=== PATIENT | female | born 1950 | race Caucasian/White ===

== ENCOUNTER 2017-03-08 13:54 | Outpatient (CLI) | payer MEDICARE, OTHER ==
[2011-03-19 06:18] VITALS: BMI 26.7
== END 2017-03-08 14:21 ==
LOC: D.MAMMO 13:54
DX: Z12.31 Encounter for screening mammogram for malignant neoplasm of breast (principal)

== ENCOUNTER 2017-03-31 10:45 | Outpatient (CLI) | payer MEDICARE, OTHER ==
[2011-03-19 06:18] VITALS: BMI 26.7
== END 2017-03-31 13:50 ==
LOC: D.MAMMO 10:45
DX: R92.8 Other abnormal and inconclusive findings on diagnostic imaging of breast (principal)

== ENCOUNTER → 2017-11-21 14:40 | Outpatient (CLI) | payer MEDICARE, OTHER ==
[2011-03-19 06:18] VITALS: BMI 26.7
== END | disposition home or self-care (01) ==
LOC: D.MAMMO 04-15 13:00 → D.US 10-11 09:00 → D.MAMMO 11:00
DX: R92.8 Other abnormal and inconclusive findings on diagnostic imaging of breast (principal)

== ENCOUNTER → 2017-12-01 08:56 | Outpatient (CLI) | payer MEDICARE, OTHER ==
[2011-03-19 06:18] VITALS: BMI 26.7
== END | disposition home or self-care (01) ==
LOC: D.US 08:56
DX: R92.8 Other abnormal and inconclusive findings on diagnostic imaging of breast (principal)

== ENCOUNTER → 2019-01-01 11:52 | Outpatient (CLI) | payer MEDICARE, OTHER ==
[2011-03-19 06:18] VITALS: BMI 26.7
== END | disposition home or self-care (01) ==
LOC: D.LABREF 11:52
PROVIDERS: ATTEND Orthopaedic Surgery
DX: M17.12 Unilateral primary osteoarthritis, left knee (principal); Z11.8 Encounter for screening for other infectious and parasitic diseases

== ENCOUNTER 2019-01-16 06:35 | Inpatient (IN) | payer MEDICARE, OTHER ==
[2019-01-10 11:14] LABS: BASOPHILS 0.4 % (0-2); EOSINOPHILS 1.7 % (0-7); HEMATOCRIT 40.6 % (36.0-48.0); HEMOGLOBIN 14.1 g/dL (12-16); IMMATURE GRANULOCYTES 0.4 % (0-5); LYMPHOCYTES 29.6 % (15-50); MCH 30.9 pg (26.0-34.0); MCHC 34.7 g/dL (31.0-37.0); MCV 88.8 fL (80.0-100.0); MONOCYTES 9.1 % (2-11); NEUTROPHILS 58.8 % (40-80); PLATELET COUNT 185 10x3/uL (130-400); RBC 4.57 10x6/uL (4.00-5.40); RDW 12.6 % (11.5-14.5)
[2019-01-10 11:18] LABS: APTT 26.9 SECONDS (22.8-39.4); CALC OSMOLALITY 282 mosm/kg (275-300); CALCIUM 8.6 mg/dL (8.5-10.1); CHLORIDE - SERUM 105 mmol/L (98-107); CREATININE - SERUM 0.6 mg/dL (0.6-1.3); GLUCOSE 106 mg/dL (74-106); INR 1.04 (0.85-1.17); POTASSIUM - SERUM 3.6 mmol/L (3.5-5.1); PROTIME 13.1 SECONDS (11.6-15.0); SODIUM 142 mmol/L (136-145); UREA NITROGEN 12 mg/dL (7-18); eGFR NON AFRICAN AMERICAN > 90 mL/min (90-120)
[2019-01-10 11:25] LABS: APPEARANCE CLEAR (CLEAR); BACTERIA FEW /hpf (NONE SEEN); BILIRUBIN NEGATIVE (NEGATIVE); COLOR YELLOW (YELLOW); EPITHELIAL CELLS RARE /hpf (0-5); GLUCOSE NEGATIVE (NEGATIVE); KETONE NEGATIVE (NEGATIVE); MUCUS <1+ /lpf (NONE SEEN); NITRITE NEGATIVE (NEGATIVE); PROTEIN NEGATIVE (NEGATIVE); RED CELLS - URINE RARE /hpf (0-5); SPECIFIC GRAVITY 1.015 (1.005-1.020); UROBILINOGEN NORMAL (NORMAL); WHITE CELLS - URINE RARE /hpf (0-5)
[~2019-01-16 06:35] MED LIST: AMBIEN5 MG PO; BENADRYL25 MG PO; CALCIUM 500 +1 EAC3 PO; CO Q-10100 MG PO; DETROL LA4 MG PO; KRILL OIL 1,001 EAC1 PO; MECLIZINE HCL25 MG PO; OMEPRAZOLE20 M1 PO; SOMA250 MG PO; ULTRAM50 MG PO
[2019-01-16 07:28] VITALS: BP 139/77; BMI 27.4
[2019-01-16 14:22] VITALS: BP 126/83
--- NOTE | 2019-01-16 16:27 | OP ---
PATIENT NAME: BRENDAN OSWALD MEDICAL RECORD: [id number] :48 LOCATION:D.[facility] [place] [facility] ADMISSION DATE:01/16/19 SURGEON: ROYCE PARIKH DO DATE OF OPERATION: 01/16/2019 PROCEDURE PERFORMED: Left total knee arthroplasty. PREOPERATIVE DIAGNOSIS: Left knee osteoarthritis. POSTOPERATIVE DIAGNOSIS: Left knee osteoarthritis. INDICATIONS: Ms. Oswald is a 68-year-old female who has had all manner of conservative management for her left knee and has given her pain and affecting her activities of daily living. She was tired of dealing with it and having it done that and after failing injections and all other conservative management, she wanted the total knee done. She is aware of the risks including infection, bleeding, damage to nerve or vessels, fracture, need for further surgery, and signed the consent. SURGEON: Royce Parikh DO. SHOE STAINER: Hal Carr, advance nurse practitioner. He assisted with retraction, could not have been performed without him. DESCRIPTION OF PROCEDURE: The patient received a block by anesthesia in the preoperative area. He was taken to the operative suite, laid in supine position. Left lower extremity was prepped and draped in sterile fashion. The patient was given a gram of vancomycin and a gram of TXA prior to incision. A timeout had been performed and once everybody were in agreement of correct side, site, patient and procedure, the incision was marked out and covered with Ioban. A 10 blade scalpel was used to make the incision and dissect down to the capsule. Capsule was cleared off and a fresh 10 blade was used to do a medial parapatellar approach to the knee. All bleeding was coagulated at that time with Aquamantys. Some of the fat pad was removed at that time and the knee was brought to extension and the patella was milled down. The implant measured to be a 31 three PEG patella. Once the patella was milled down, the femur was exposed and the intramedullary guide was drilled. The guide was put down and the distal femur was cut. After the distal femur was cut, the tibia was exposed and the proximal tibia was cut. This was removed as well as the menisci and any other bleeders were coagulated with the Aquamantys at that time. The knee was then flexed up. The extension block was then put in and fit very easily well. The knee was then flexed up and the femur was measured to be a 60. A 4-in-1 cutting block was then put into place and it was cut. The trial was then impacted on the femur and the poly and tray was floated into the tibia and ranged 5 times and then the rotation was marked. Once rotation was marked, the patellar holes were drilled through the guide and then the lug holes were drilled through the femur and the tibial tray, and poly were removed. The tibia was then exposed and sized to be 67. This was drilled and punched and the extra holes were put in the tibia for the cement. After that was done, the cement was mixed and the knee was thoroughly irrigated. Cement was put on the tibial tray as well as in the tibia and the tibial tray was impacted in place. Excess cement was removed. The femur was then impacted on it and was press fit and a 12 poly was put in between them, brought to an extension. Any excess cement was removed at that time. Then the patella was put on and cemented into place and held until the cement dried, excess cement was removed. The knee was irrigated OPERATIVE REPORT [id number] BRENDAN OSWALD at that time. Any bleeders were coagulated as well. Once the cement had dried, we trialed a 12, it seemed to fit well, but it was a little loose and a 14 was put in and fit very well, it was good and tight and had good medial and lateral stability both in extension and flexion. The knee was then irrigated and the actual deep-dish E-poly was put in with a 14 and then the locking mechanism was put into the tray. The knee was irrigated again and then Surgicel powder as well as vancomycin and tobramycin powder were put in the knee. The capsule was then closed with #2 Ethibond in hwdwrd-rn-wsydl fashion. Then, the excess antibiotic powder was placed on top of the capsule. The skin was then closed with 2-0 Vicryl in inverted interrupted fashion and a Zipline placed on the knee. The patient had Adaptic, 4 x 4s, ABD, Webril and Osmin wrap placed on the knee and then a SOFYA hose stocking up to the knee. She was then awakened and taken to recovery in stable condition. She did receive a second gram of TXA at closure. BLOOD LOSS: Approximately 150 mL. COMPLICATIONS: None. TRANSINT:[id number] Voice Confirmation ID: [id number] DOCUMENT ID: [id number] ROYCE PARIKH DO at 1627 CC: [id number] DICTATION DATE: 01/16/19 1308 RESIDENTIAL CASE MANAGER: 01/16/19 1540 ADM IN [place] [id number] [place] [address]
[2019-01-16 17:21] VITALS: BP 129/83
[2019-01-16 22:01] VITALS: BP 102/62
[2019-01-17 05:09] VITALS: BP 115/55
[2019-01-17 05:20] LABS: HEMATOCRIT 36.6 % (36.0-48.0); HEMOGLOBIN 12.5 g/dL (12-16); MCH 30.5 pg (26.0-34.0); MCHC 34.2 g/dL (31.0-37.0); MCV 89.3 fL (80.0-100.0); MEAN PLATELET VOLUME 10.4 fL (7.4-10.4); RBC 4.1 10x6/uL (4.00-5.40); RDW 12.3 % (11.5-14.5)
--- NOTE | 2019-01-17 09:09 | CN ---
PATIENT NAME:BRENDAN RIBERA MEDICAL RECORD: [id number] : 48 LOCATION:D.[facility] [place] [facility] ADMIT DATE: 01/16/19 ACCOUNT: [id number] CONSULTING PHYSICIAN: JAM HUNT MD REFERRING PHYSICIAN: GRADY PARIKH DO DATE OF CONSULTATION: 01/16/2019 REQUESTING PHYSICIAN: Grady Parikh DO REASON FOR CONSULTATION: Medical management. HISTORY OF PRESENT ILLNESS: This is a 68-year-old female who was admitted by Dr. Parikh for elective left total knee arthroplasty for severe arthritis. She has had her procedure and she appears comfortable. PAST MEDICAL HISTORY: She has a past medical history of overactive bladder, heart palpitations, and hyperlipidemia. She has a vestibular schwannoma. PAST SURGICAL HISTORY: Foot surgery to fix plantar fasciitis and heel spur. She has had right carpal tunnel release, cholecystectomy, and bilateral tubal ligation. FAMILY HISTORY: Father at 77 of heart disease. Mother is as well. SOCIAL HISTORY: The patient is retired and . HOME MEDICATIONS: Omeprazole 20 mg a day, Detrol-LA 4 mg once a day, tramadol p.r.n. pain, zolpidem 2.5 mg at bedtime p.r.n. sleep, Benadryl 25 mg p.o. at bedtime p.r.n. sleep, Soma 250 mg t.i.d. p.r.n. dizziness due to vestibular schwannoma, and Meclizine 25 mg p.o. t.i.d. p.r.n. dizziness for vestibular schwannoma. REVIEW OF SYSTEMS: GENERAL: No major weight changes. HEENT: No sinus or allergy problems. RESPIRATORY: No asthma, emphysema, or pneumonia. CARDIAC: No hypertension. She does have palpitations and sees Dr. Borrero for it. GASTROINTESTINAL: Has heartburn. GENITOURINARY: She has overactive bladder. MUSCULOSKELETAL: She has had arthritic aches and pains. NEUROLOGIC: She has vestibular neuroma. No seizures. No migraines. PSYCHIATRIC: Denies depression or melancholia. She sometimes has sleep issues. PHYSICAL EXAMINATION: VITAL SIGNS: Temperature 98.8, pulse 87, respirations 20, blood pressure 129/83, O2 sat 99%. GENERAL: She is awake and alert, in no acute distress. SKIN: Warm and dry. HEENT: Grossly within normal limits. NECK: Supple. No bruit. HEART: Regular rate and rhythm without murmur. LUNGS: Clear. ABDOMEN: Soft. CONSULT REPORT [id number] BRENDAN RIBERA EXTREMITIES: Left knee is in a CPM currently, right leg with SCDs on. There is no edema. LABORATORY DATA: Done preoperatively, CBC was totally normal. Chemistry was totally normal. INR 1.04. Urinalysis was clear. ASSESSMENT: 1. Heart palpitations. 2. Overactive bladder. 3. Arthritis, status post left total knee arthroplasty by Dr. Parikh. PLAN: We will monitor the patient and continue her on her regular medications. TRANSINT:[id number] Voice Confirmation ID: [id number] DOCUMENT ID: [id number] JAM HUNT MD at 0909 CC: [id number] DICTATION DATE: 01/16/19 185 ACADEMIC RECORDS SPECIALIST: 01/16/192025 ADM IN [place] [id number] [place] [id number]
[2019-01-17 09:23] VITALS: BP 126/79
[2019-01-17 11:33] LABS: APPEARANCE CLEAR (CLEAR); COLOR STRAW (YELLOW); SPECIFIC GRAVITY 1.005 (1.005-1.020)
[2019-01-17 11:34] LABS: BILIRUBIN NEGATIVE (NEGATIVE); GLUCOSE NEGATIVE (NEGATIVE); KETONE NEGATIVE (NEGATIVE); NITRITE NEGATIVE (NEGATIVE); PROTEIN NEGATIVE (NEGATIVE); UROBILINOGEN NORMAL (NORMAL)
[2019-01-17 14:10] VITALS: BMI 27.4
[2019-01-17 14:17] VITALS: BP 148/62
[2019-01-17 18:07] VITALS: BP 146/74
[2019-01-17 22:28] VITALS: BP 137/73
[2019-01-18 05:02] VITALS: BP 132/70
[2019-01-18 06:46] LABS: HEMATOCRIT 32.7 % (36.0-48.0); HEMOGLOBIN 11.1 g/dL (12-16); MCH 30.3 pg (26.0-34.0); MCHC 33.9 g/dL (31.0-37.0); MCV 89.3 fL (80.0-100.0); MEAN PLATELET VOLUME 10.4 fL (7.4-10.4); RBC 3.66 10x6/uL (4.00-5.40); RDW 12.7 % (11.5-14.5)
[2019-01-18 06:50] LABS: WBC 6.8 10x3/uL (4.8-10.8)
[2019-01-18 08:20] VITALS: BP 127/72
[2019-01-18] MEDS ORDERED: VISTARIL50 MG PO (12:11)
[2019-01-18] MEDS ORDERED: KEFLEX500 MG PO (12:11)
[2019-01-18] MEDS ORDERED: HYDROCODON-ACE1 EA10 PO (12:11)
[2019-01-18] MEDS ORDERED: BAYER CHEWABLE81 MG PO (12:12)
[2019-01-18 12:26] VITALS: BP 131/86
--- NOTE | 2019-01-18 14:31 | MORECARE ---
CASE MANAGEMENT DISCHARGE SUMMARY PATIENT: BRENDAN RIBERA UNIT: [id number] ADM DATE: 01/16/19 AGE: 68 : 49 SEX: F ROOM/BED: D.2213 AUTHOR: CARLOS KARIMI PHYSICIAN: REFERRING PHYSICIAN: GRADY PARIKH DO DATE OF SERVICE: 01/18/19 Discharge Plan Patient Name: BRENDAN RIBERA Facility: [facility]:[place] : 1950 Planned Disposition: Home Anticipated Discharge Date: Discharge Date: Expected LOS: Initial Reviewer: [email or web address] Initial Review Date: 01/16/2019 Generated: 01/18/19 3:31 pm External [facility]iders [facility] Next Contact Date: Service Request Date: Service Type: Resolution: Reviewer: Comments: Patient Name: BRENDAN RIBERA Page [phone] at 1431 All edits/amendments must be made on the electronic document DICTATION DATE: 01/18/19 1430 CLAIMS ACCOUNT MANAGER: DERREK 01/18/19 1430 RPT#: [id number] GA DATE: STATUS: ADM IN [place] [address] [place] [address] END OF REPORT
--- NOTE | 2019-01-18 14:41 | MORECARE ---
CASE MANAGEMENT DISCHARGE SUMMARY PATIENT: BRENDAN RIBERA UNIT: [id number] ADM DATE: 01/16/19 AGE: 68 : 49 SEX: F ROOM/BED: D.2213 AUTHOR: TREV,DOC PHYSICIAN: REFERRING PHYSICIAN: GRADY PARIKH DO DATE OF SERVICE: 01/18/19 Discharge Plan Patient Name: BRENDAN RIBERA Facility: [facility]:[place] : 1950 Planned Disposition: Home Anticipated Discharge Date: Discharge Date: Expected LOS: Initial Reviewer: [email or web address] Initial Review Date: 01/16/2019 Generated: 01/18/19 3:41 pm Comments DCP- Discharge Planning Updated by [email or web address]: Renate Ortiz on 01/18/19 1:[address] Patient Name: BRENDAN RIBERA Admission Status: Urgent Accout number: [id number] Admission Date: 01-16-2019 : 1950 Admission Diagnosis: Attending: GRADY PARIKH Current LOS: 2 Anticipated DC Date: Planned Disposition: Home Primary Insurance: MEDICARE A & B Discharge Planning Comments: CM met with patient to complete initial dc planning assessment. CM educated patient on the CM role and verbal consent given by patient to complete assessment. Patient lives at home with her where she is independent with her care. At discharge patient plans to return home and feels this is a safe discharge. She would like to do [facility]. I have called and made her first appointment for Tuesday01/22/19 @ 7:45am I spoke with Cherise. Copy of order/appointment will be sent home with her DC instructions. Patient had her CPM, Ice machine, walker & BSC at home. This was set up by Dr Parikh's office prior to surgery. Patient denied known discharge needs at this time. CM will continue to follow and will assist as needed with dc plans/needs. Bungy Jump Master: Renate Ortiz DCPIA - Discharge Planning Initial Assessment Updated by [email or web address]: Renate Ortiz on 01/18/19 2:32 pm * Is the patient Alert and Oriented? Yes * How many steps to enter\exit or inside your home? * PCP [facility] * Pharmacy [facility] * Preadmission Environment Home with Family * ADLs Independent * Equipment Bedside Commode Walker * Other Equipment ice machine CPM * List name and contact numbers for known caregivers / representatives who currently or will assist patient after discharge: Jose [phone] * Verbal permission to speak to the caregivers and representatives has been obtained from the patient. Yes * Community resources currently utilized None * Additional services required to return to the preadmission environment? Yes * Can the patient safely return to the preadmission environment? Yes * Has this patient been hospitalized within the prior 30 days at any hospital? No Last DP export: 01/18/19 1:31 p Patient Name: BRENDAN RIBERA Page [phone] at 1441 All edits/amendments must be made on the electronic document DICTATION DATE: 01/18/191440 TETRYL WRINGER OPERATOR: DERREK 01/18/191440 RPT#: [id number] DC DATE: STATUS: ADM IN [facility] [address] [place] [address] END OF REPORT
[2019-01-18 14:44] VITALS: BP 142/82
== END 2019-01-18 17:54 | disposition home or self-care (01) | DRG 470 ==
LOC: D.SDCHOLD 06:35 → D.MS 13:51 → D.SDCHOLD 14:10 → D.MS 14:20
PROVIDERS: ADMIT Orthopaedic Surgery
PROC: 0SRC0J9 Replacement of Right Knee Joint with Synthetic Substitute, Cemented, Open Approach (ICD-10-PCS; principal; 2019-01-16 09:30)
DX: M17.12 Unilateral primary osteoarthritis, left knee (principal); E78.5 Hyperlipidemia, unspecified; R00.2 Palpitations

== ENCOUNTER → 2019-03-09 16:51 | Outpatient (CLI) | payer MEDICARE, OTHER ==
[~2019-03-09 16:51] MED LIST changes: +BAYER CHEWABLE81 MG PO; +EXCEDRINE MIGRAINE; +HYDROCODON-ACE1 EA10 PO; +KEFLEX500 MG PO; +LEG CRAMPS PM; +NAPROSYN500 MG PO; +TUMS X-STR300 MG PO; +VISTARIL50 MG PO
== END | disposition home or self-care (01) ==
LOC: D.MAMMO 10:15
PROVIDERS: ATTEND Family Medicine
DX: Z12.31 Encounter for screening mammogram for malignant neoplasm of breast (principal)

== ENCOUNTER → 2019-03-29 13:30 | Outpatient (CLI) | payer MEDICARE, OTHER ==
[~2019-03-29 13:30] MED LIST changes: -EXCEDRINE MIGRAINE; -LEG CRAMPS PM; -NAPROSYN500 MG PO; -TUMS X-STR300 MG PO
== END | disposition home or self-care (01) ==
LOC: D.MAMMO 13:30
PROVIDERS: ATTEND Family Medicine
DX: R92.8 Other abnormal and inconclusive findings on diagnostic imaging of breast (principal)

== ENCOUNTER 2019-05-10 05:40 | Day surgery (SDC) | payer MEDICARE, OTHER ==
[2019-05-09 08:51] LABS: CALC OSMOLALITY 279 mosm/kg (275-300); CALCIUM 8.8 mg/dL (8.5-10.1); CARBON DIOXIDE 27.4 mmol/L (21.0-32.0); CHLORIDE - SERUM 104 mmol/L (98-107); CREATININE - SERUM 0.8 mg/dL (0.6-1.3); GLUCOSE 92 mg/dL (74-106); SODIUM 139 mmol/L (136-145); UREA NITROGEN 17 mg/dL (7-18); eGFR NON AFRICAN AMERICAN 75 mL/min (90-120)
[2019-05-09 08:55] LABS: BASOPHILS 0.9 % (0-2); HEMATOCRIT 40.8 % (36.0-48.0); HEMOGLOBIN 14.3 g/dL (12-16); IMMATURE GRANULOCYTES 1.3 % (0-5); LYMPHOCYTES 31.5 % (15-50); MCH 29.8 pg (26.0-34.0); MEAN PLATELET VOLUME 10.4 fL (7.4-10.4); MONOCYTES 7.5 % (2-11); NEUTROPHILS 56.8 % (40-80); RDW 13.2 % (11.5-14.5); WBC 4.5 10x3/uL (4.8-10.8)
[2019-05-09 09:02] LABS: PLATELET COUNT 155 10x3/uL (130-400)
[~2019-05-10] VITALS: Ht 154.9 cm; Wt 63.0 kg
[2019-05-10] MEDS ORDERED: LEG CRAMPS PM (06:50)
[2019-05-10] MEDS ORDERED: EXCEDRINE MIGRAINE (06:51)
[2019-05-10 06:52] VITALS: BP 145/95; Ht 154.9 cm; Wt 63.0 kg
--- NOTE | 2019-05-10 08:54 | NUR ---
0850 PT RETURN TO ROOM 2512 FROM RADIOLOGY DEPT.
[2019-05-10] MEDS ORDERED: ULTRAM50 MG PO (11:22)
--- NOTE | 2019-05-10 13:58 | NUR ---
1215 PT REQUESTING PAIN MEDICATION TO "STAY AHEAD OF PAIN"
--- NOTE | 2019-05-10 14:00 | NUR ---
1255 PT STATES HER PAIN IS BACK AT 2 AFTER GETTING STILL. IV DC'D. CATHETER TIP INTACT. PRESSURE HELD UNTIL BLEEDING CEASED. BANDAID APPLIED.
--- NOTE | 2019-05-10 14:00 | NUR ---
1223 PT STATES HER PAIN LEVEL WENT UP AFTER GETTING UP TO BATHROOM TO VOID. RATES IT 4-5.
--- NOTE | 2019-05-15 08:10 | OP ---
PATIENT NAME: BRENDAN RIBERA MEDICAL RECORD: [id number] :48 LOCATION:DAVE ADMISSION DATE: SURGEON: NAREN ARMENDARIZ MD DATE OF OPERATION: 05/10/2019 PREOPERATIVE DIAGNOSES: 1. Left breast mass. 2. Hypercholesterolemia. 3. GERD. POSTOPERATIVE DIAGNOSES: 1. Left breast mass. 2. Hypercholesterolemia. 3. GERD. PROCEDURE: Needle loc left breast lumpectomy. SURGEON: Naren Armendariz MD REPORT OF PROCEDURE: The patient's left breast was prepped and draped in sterile fashion. Preoperatively, the patient had undergone stereotactic wire localization. A skin incision was made transversely on the superior aspect of the breast at about the 12 o'clock position. Electrocautery was used to dissect through the subcutaneous tissues until we were able to eviscerate the wire through our wound. We followed this wire down through the subcutaneous and breast tissue until we had a good core of tissue all the way down to the pec muscle. The specimen was marked appropriately and sent off for permanent. Imaging showed that the wire was intact in the specimen and that the mass was present within the specimen and the previous biopsy clip was present in the specimen. The wound was then irrigated out with sterile water. The subcutaneous tissues were reapproximated with interrupted 3-0 Vicryl and infused with 10 mL of 0.25% Marcaine with epinephrine. The skin incision was closed with subcutaneous running 5-0 Monocryl and dressed appropriately. TRANSINT:[id number] Voice Confirmation ID: [id number] DOCUMENT ID: [id number] NAREN ARMENDARIZ MD at 0810 CC: [id number] DICTATION DATE: 05/10/19 1127 CREDIT COLLECTION ASSOCIATE: 05/10/19 1319 [facility] 05/10/19 [place] [address]
== END 2019-05-10 13:09 | disposition home or self-care (01) ==
LOC: D.OPS 05:40 → D.MAMMO 08:00 → D.PAN 08:00 → D.OPS 08:00
PROVIDERS: Anesthesiology; ATTEND Surgery
DX: N63.0 Unspecified lump in unspecified breast (principal); E78.00 Pure hypercholesterolemia, unspecified; K21.9 Gastro-esophageal reflux disease without esophagitis

== ENCOUNTER 2019-05-29 05:43 | Day surgery (SDC) | payer MEDICARE, OTHER ==
[~2019-05-29] VITALS: Ht 154.9 cm; Wt 62.6 kg
[~2019-05-29 05:43] MED LIST changes: +EXCEDRINE MIGRAINE; +LEG CRAMPS PM; +NAPROSYN500 MG PO
[2019-05-29 06:13] LABS: BASOPHILS 0.4 % (0-2); EOSINOPHILS 2.7 % (0-7); HEMATOCRIT 38.3 % (36.0-48.0); HEMOGLOBIN 13.6 g/dL (12-16); IMMATURE GRANULOCYTES 0.6 % (0-5); LYMPHOCYTES 26.3 % (15-50); MCH 30.1 pg (26.0-34.0); MCHC 35.5 g/dL (31.0-37.0); MCV 84.7 fL (80.0-100.0); MEAN PLATELET VOLUME 9.6 fL (7.4-10.4); MONOCYTES 9.4 % (2-11); NEUTROPHILS 60.6 % (40-80); PLATELET COUNT 146 10x3/uL (130-400); RBC 4.52 10x6/uL (4.00-5.40); RDW 13.2 % (11.5-14.5); WBC 4.9 10x3/uL (4.8-10.8)
[2019-05-29 06:27] LABS: CALC OSMOLALITY 284 mosm/kg (275-300); CALCIUM 9.6 mg/dL (8.5-10.1); CARBON DIOXIDE 26.2 mmol/L (21.0-32.0); CHLORIDE - SERUM 107 mmol/L (98-107); CREATININE - SERUM 0.8 mg/dL (0.6-1.3); GLUCOSE 92 mg/dL (74-106); POTASSIUM - SERUM 4.1 mmol/L (3.5-5.1); SODIUM 142 mmol/L (136-145); UREA NITROGEN 18 mg/dL (7-18); eGFR NON AFRICAN AMERICAN 75 mL/min (90-120)
[2019-05-29 06:40] LABS: APTT 28.4 SECONDS (22.8-39.4); INR 1.05 (0.85-1.17); PROTIME 13.2 SECONDS (11.6-15.0)
[2019-05-29] MEDS ORDERED: TUMS X-STR300 MG PO (06:54)
[2019-05-29 07:17] VITALS: BP 148/87; Ht 154.9 cm; Wt 62.6 kg
--- NOTE | 2019-05-29 09:50 | NUR ---
Time out was done at 0820 on 05/29/19 for Left Breast Lymphoscintigraphy. Following, Dr. Santos injected 529uCi Tc-99m Tilmanocept subcutaneously into the left breast. Imaging followed.
--- NOTE | 2019-05-29 12:20 | NUR ---
1220 IV REMOVED TO RIGHT ARM. INSTRUCTIONS GIVEN AND PT TOOK HOME MED FOR H/A TOLERATED LIQUIDS WELL.
--- NOTE | 2019-05-31 07:19 | OP ---
PATIENT NAME: BRENDAN RIBERA MEDICAL RECORD: [id number] :48 LOCATION:[facility] ADMISSION DATE: SURGEON: NAREN ARMENDARIZ MD DATE OF OPERATION: 05/29/2019 PREOPERATIVE DIAGNOSES: 1. Left breast cancer. 2. Hypercholesterolemia. POSTOPERATIVE DIAGNOSES: 1. Left breast cancer. 2. Hypercholesterolemia. PROCEDURE: Left axillary sentinel lymph node biopsy. SURGEON: Naren Armendariz MD REPORT OF PROCEDURE: Preoperatively, the patient had undergone lymphoscintigraphy. The patient's left breast and axilla were prepped and draped in sterile fashion. Using a Neoprobe, we found the area overlying the area of highest radiotracer reading and made a transverse incision. Electrocautery was used to dissect through the subcutaneous tissue and fascia until we entered the axillary space. Once in the space, we were able to elevate a small lymph node, which had a reading of 575. This lymph node was excised completely and sent off for permanent specimen. We inspected the remainder of the axillary bed and did not find any other lymph nodes with readings high enough to require removal. At this point, we irrigated out the wound with sterile water. The subcutaneous tissues were reapproximated with interrupted 3-0 Vicryl and the skin was closed with running subcutaneous 5-0 Monocryl. A total of 10 mL of 0.25% Marcaine with epinephrine was infused into the surrounding tissues and the wound was dressed appropriately. COMPLICATIONS: None. CONDITION: Stable. ANESTHESIA: General endotracheal and local. BLOOD LOSS: Minimal. TRANSINT:[id number] Voice Confirmation ID: [id number] DOCUMENT ID: [id number] NAREN ARMENDARIZ MD at 0719 CC: REBECCA BARRIOS MD [id number] DICTATION DATE: 05/29/19 1110 CAMPUS EXECUTIVE DIRECTOR: 05/29/19 1117 [facility] 05/29/19 [place] [id number]
== END 2019-05-29 12:41 | disposition home or self-care (01) ==
LOC: D.OPS 05:43 → D.NM 07:30 → D.OPS 12:41
PROVIDERS: Anesthesiology; ATTEND Surgery
DX: C50.912 Malignant neoplasm of unspecified site of left female breast (principal); E78.00 Pure hypercholesterolemia, unspecified; Z01.812 Encounter for preprocedural laboratory examination

== ENCOUNTER 2019-10-09 08:00 | Outpatient (CLI) | payer MEDICARE, OTHER ==
[2019-05-29 07:17] VITALS: BMI 26.1
[~2019-10-09 08:00] MED LIST changes: +TUMS X-STR300 MG PO
== END 2019-10-09 23:59 | disposition home or self-care (01) ==
LOC: D.MAMMO 08:00
PROVIDERS: ATTEND Family Medicine
DX: R92.8 Other abnormal and inconclusive findings on diagnostic imaging of breast (principal)

== ENCOUNTER 2020-01-08 10:00 | Outpatient (CLI) | payer MEDICARE, OTHER ==
[2019-05-29 07:17] VITALS: BMI 26.1
== END 2020-01-08 11:00 | disposition home or self-care (01) ==
LOC: D.MAMMO 10:00
PROVIDERS: ATTEND Internal Medicine Medical Oncology
DX: C50.812 Malignant neoplasm of overlapping sites of left female breast (principal)

== ENCOUNTER 2020-05-02 14:30 | Outpatient (CLI) | payer MEDICARE, OTHER ==
[2019-05-29 07:17] VITALS: BMI 26.1
== END 2020-05-02 23:59 | disposition home or self-care (01) ==
LOC: D.MAMMO 14:30
PROVIDERS: ATTEND Surgery
DX: Z12.31 Encounter for screening mammogram for malignant neoplasm of breast (principal)

== ENCOUNTER 2021-01-28 15:00 | Outpatient (CLI) | payer MEDICARE, OTHER ==
[2019-05-29 07:17] VITALS: BMI 26.1
== END 2021-01-28 23:59 | disposition home or self-care (01) ==
LOC: D.MAMMO 15:00
PROVIDERS: ATTEND Internal Medicine Medical Oncology
DX: C50.812 Malignant neoplasm of overlapping sites of left female breast (principal)